=== PATIENT | male | born 1985 | race Caucasian/White ===

== ENCOUNTER → 2019-07-07 | Outpatient (CLI) | payer BC ==
--- NOTE | 2019-07-08 06:57 | CT ---
EXAMINATION TYPE: CT abdomen w con DATE OF EXAM: 07/07/2019 COMPARISON: None. HISTORY: mass above navel area, c/o nausea CT DLP: 409.8 mGycm, Automated Exposure Control for Dose Reduction was Utilized. CONTRAST: CT scan of the abdomen is performed with oral and with IV Contrast, patient injected with 100 mL of I sovue 300. FINDINGS: LUNG BASES: No significant abnormality is appreciated. LIVER/GB: No significant abnormality is appreciated. PANCREAS: No significant abnormality is seen. SPLEEN: No significant abnormality is seen. ADRENALS: No significant abnormality is seen. KIDNEYS: Symmetric cortical medullary uptake and excretion without hydronephrosis seen bilaterally. C ircumaortic left renal vein which is normal variant. BOWEL: Oral contrast does not reach colonic level making evaluation bowel slightly suboptimal. No mae picious small or large bowel dilatation. LYMPH NODES: No greater than 1cm abdominal lymph nodes are appreciated. OSSEOUS STRUCTURES: No significant abnormality is seen. OTHER: There is good visualization of umbilicus or navel sagittal image 58. Patient has little intra- abdominal and extra-abdominal fat. I see no obvious solid or cystic mass or fluid collection near thi s level. Normal rectus muscles are seen. IMPRESSION: No significant finding is seen to account for patient's clinical symptoms.
== END | disposition home or self-care (01) ==
LOC: RADCTMAIN 15:59
PROVIDERS: ATTEND Family Medicine
DX: R19.00 Intra-abdominal and pelvic swelling, mass and lump, unspecified site (principal)
CPT/HCPCS: 74160; Q9967

== ENCOUNTER → 2023-04-07 | Outpatient (CLI) | payer OTHER ==
--- NOTE | 2023-04-07 12:25 | MR ---
PRE AND POSTCONTRAST ENHANCED MRI OF THE BRAIN: CLINICAL HISTORY: R51.9 CONTRAST: 15 ML Multihance Multiplanar and multispin-echo imaging of the brain was performed both before and after the administr ation of contrast. The ventricles, basal cisterns and sulci overlying the cerebral convexities are within normal limits. There is no evidence for midline shift or mass effect. Acute intracranial hemorrhage or extra-axial collection is not evident. There are no abnormal areas of increased or decreased signal intensity within the brain parenchyma. Following contrast administration, there is no evidence for pathologic enhancement or enhancing mass. The paranasal sinuses and mastoid air cells are well-aerated. IMPRESSION: Unremarkable pre and postcontrast enhanced MRI of the brain.
== END | disposition home or self-care (01) ==
LOC: RADMRIMAIN 10:54
PROVIDERS: ATTEND Family Medicine
DX: H53.8 Other visual disturbances (principal); R51.9 Headache, unspecified
CPT/HCPCS: 70553; A9585